=== PATIENT | female | born 1935 | race Caucasian/White ===

== ENCOUNTER → 2016-03-12 | Outpatient (CLI) | payer MEDICARE, BC ==
[~2016-03-12] MED LIST: BETIMOL 0.5% OPH5 ML OD; BETIMOL 0.5% OPH5 ML OU; HCTZ 25MG TAB25 MG PO; HCTZ12.5TAB PO; SYNTHROID0.05 MG/TA PO; SYNTHROID0.075 MG/T PO; XALATAN EYE DROPS OD; ZOFRAN 4MG T4 MG/TAB PO
== END ==
LOC: COL.VAS 12:45
DX: M79.89 Other specified soft tissue disorders (principal)

== ENCOUNTER → 2017-04-18 | Outpatient (CLI) | payer MEDICARE, BC ==
[2017-04-18 15:59] LABS: BASO % 0.2 % (0.0-2.0); EOS # 0.2 (0.0-0.7); EOS % 3.2 % (0-4.0); GRAN # 4.4 (1.4-6.5); GRAN % 66.5 % (42.2-75.2); HEMATOCRIT 40.3 % (37.0-47.0); HEMOGLOBIN 13.6 g/dl (12.5-16.0); LYMPH # 1.4 (1.2-3.4); LYMPH % 21.2 % (20.0-51.0); MEAN CELL VOLUME 97 fl (80.0-100.0); MEAN CORPUSCULAR HEMOGLOBIN 33 pg (27.0-31.0); MEAN CORPUSCULAR HGB CONC 34 g/dl (33.0-37.0); MEAN PLATELET VOLUME 9.1 fl (7.4-10.4); MONO # 0.6 (0.1-0.6); MONO % 8.7 % (1.7-9.3); PLATELET COUNT 165 K/mm3 (130-400); RED BLOOD COUNT 4.17 M/mm3 (4.10-5.30); REDCELL DISTRIBUTION WIDTH-CV 13.2 % (11.5-14.5)
[2017-04-18 16:21] LABS: ALANINE AMINOTRANSFERASE 39 U/L (9-52); ALBUMIN 4.6 gm/dL (3.5-5.0); ALKALINE PHOSPHATASE 111 U/L (50-136); ANION GAP 9 mmol/L (7-16); AST,SGOT 31 U/L (15-37); BILIRUBIN,TOTAL 0.9 mg/dL (0.0-1.0); BLOOD UREA NITROGEN 16 mg/dL (7-17); CALCIUM 9.6 mg/dL (8.4-10.2); CARBON DIOXIDE 29 mmol/L (22-30); CHLORIDE 94 mmol/L (98-107); GLUCOSE 97 mg/dL (74-106); POTASSIUM 4.1 mmol/L (3.4-5.0); SODIUM 132 mmol/L (137-145); TOTAL PROTEIN 7.8 gm/dL (6.4-8.2)
[2017-04-18 16:38] LABS: TROPONIN-I < 0.012 ng/mL (0.000-0.034)
== END ==
LOC: COL.RAD 15:11
PROVIDERS: Internal Medicine
DX: R07.9 Chest pain, unspecified (principal); Q67.6 Pectus excavatum

== ENCOUNTER 2017-10-01 09:00 | Outpatient (RCR) | payer MEDICARE, BC | END 2017-10-02 10:18 | disposition home or self-care (01) | LOC: WSOT 09:00 | DX: G56.02 Carpal tunnel syndrome, left upper limb (principal) | CPT/HCPCS: G8987-GO; G8988-GO; G8989-GO ==

== ENCOUNTER 2018-02-10 13:52 | Emergency (ER) | payer MEDICARE, BC ==
[~2018-02-10] VITALS: Ht 167.6 cm; Wt 71.8 kg
[2018-02-10 13:56] VITALS: TEMP 98.2
[2018-02-10 14:23] LABS: BASO % 0.2 % (0.0-2.0); EOS # 0.2 (0.0-0.7); EOS % 3.7 % (0-4.0); GRAN # 3.3 (1.4-6.5); GRAN % 66.5 % (42.2-75.2); HEMATOCRIT 38.5 % (37.0-47.0); HEMOGLOBIN 13.2 g/dl (12.5-16.0); LYMPH # 0.9 (1.2-3.4); LYMPH % 19.2 % (20.0-51.0); MEAN CELL VOLUME 98 fl (80.0-100.0); MEAN CORPUSCULAR HEMOGLOBIN 34 pg (27.0-31.0); MEAN CORPUSCULAR HGB CONC 34 g/dl (33.0-37.0); MEAN PLATELET VOLUME 9.5 fl (7.4-10.4); MONO # 0.5 (0.1-0.6); MONO % 10.2 % (1.7-9.3); PLATELET COUNT 140 K/mm3 (130-400); RED BLOOD COUNT 3.94 M/mm3 (4.10-5.30); REDCELL DISTRIBUTION WIDTH-CV 13.2 % (11.5-14.5)
[2018-02-10 14:40] LABS: ALANINE AMINOTRANSFERASE 39 U/L (9-52); ALBUMIN 4.1 gm/dL (3.5-5.0); ALKALINE PHOSPHATASE 62 U/L (50-136); ANION GAP 7 mmol/L (7-16); AST,SGOT 29 U/L (15-37); BILIRUBIN,TOTAL 0.7 mg/dL (0.0-1.0); BLOOD UREA NITROGEN 12 mg/dL (7-17); CALCIUM 8.9 mg/dL (8.4-10.2); CARBON DIOXIDE 28 mmol/L (22-30); CHLORIDE 101 mmol/L (98-107); CREATINE KINASE 40 U/L (30-135); CREATININE, serum 0.63 mg/dL (0.52-1.25); GLUCOSE 149 mg/dL (74-106); LIPASE 249 U/L (23-300); MAGNESIUM 1.9 mg/dL (1.6-2.3); POTASSIUM 4.2 mmol/L (3.4-5.0); SODIUM 135 mmol/L (137-145); TOTAL PROTEIN 6.8 gm/dL (6.4-8.2)
[2018-02-10 14:41] LABS: C-REACTIVE PROTEIN < 0.5 mg/dL (0.0-0.9)
[2018-02-10 14:45] LABS: ERYTHROCYTE SEDIMENTATION RATE 1 mm/hr (0-30)
[2018-02-10 14:49] LABS: TROPONIN-I < 0.012 ng/mL (0.000-0.034)
[2018-02-10 15:09] LABS: COLLECTION METHOD CLEAN CATCH
[2018-02-10 15:17] LABS: PH 7 (5-8); SQUAMOUS EPITHELIAL None Seen /hpf; URINE APPEARANCE Clear; URINE BACTERIA None Seen /hpf; URINE BILIRUBIN Negative (NEGATIVE); URINE BLOOD Negative (NEGATIVE); URINE COLOR Colorless; URINE GLUCOSE Negative (NEGATIVE); URINE KETONE Negative (NEGATIVE); URINE LEUKOCYTE ESTERASE Negative (NEGATIVE); URINE NITRATE Negative (NEGATIVE); URINE PROTEIN(semi-quant) Negative (NEGATIVE); URINE RBC None Seen /hpf; URINE UROBILINOGEN Negative (NEGATIVE)
[2018-02-10 16:15] VITALS: BP 141/75; PULSE 70
== END 2018-02-10 16:37 | disposition home or self-care (01) ==
LOC: COL.ER 13:52
PROVIDERS: Emergency Medicine
DX: R53.1 Weakness (principal); I10 Essential (primary) hypertension; Z90.89 Acquired absence of other organs
CPT/HCPCS: J7030

== ENCOUNTER 2018-07-16 09:30 | Outpatient (RCR) | payer MEDICARE, BC | END 2018-07-23 10:19 | disposition home or self-care (01) | LOC: WSPT 09:30 | DX: R26.89 Other abnormalities of gait and mobility (principal) ==

== ENCOUNTER 2019-06-24 10:36 | Outpatient (CLI) | payer MEDICARE, BC ==
[~2019-06-24] VITALS: Ht 167.7 cm; Wt 66.9 kg
[~2019-06-24 10:36] MED LIST changes: -CLEOCIN HCL300 MG PO; -LOPRESSOR 225 MG/TAB PO; -NITRO-DUR0.1 MG/PAT TD; -VTAMINC250TA PO
[2019-06-24 11:02] VITALS: BP 166/72; PULSE 78; TEMP 98.2
[2019-06-24] MEDS ORDERED: FERRO-TIME325 MG PO (11:34)
[2019-06-24] MEDS ORDERED: FOLIC ACID 11 MG/TA1 PO (11:35)
[2019-06-24] MEDS ORDERED: PROTONIX 40MG T40 MG PO (11:36)
[2019-06-24] MEDS ORDERED: PREDNISONE20 MG PO (11:38)
[2019-06-24] MEDS ORDERED: NITRO-DUR0.1 MG/PAT TD (11:41)
[2019-06-24] MEDS ORDERED: VTAMINC250TA PO (11:42)
[2019-06-24 13:51] VITALS: BP 144/76; PULSE 89; TEMP 98.4
[2019-06-24] MEDS ORDERED: LOPRESSOR 225 MG/TAB PO (14:03)
[2019-06-24] MEDS ORDERED: CLEOCIN HCL300 MG PO (14:09)
--- NOTE | 2019-06-24 14:38 | NUR ---
Pt escorted to exit via wheelchair, daughter providing transportation. I reveiewed dc/fu/rx instructions with pt. She denied any questions or concerns at time of departure. Loop site was clean and dry at time of departure.
== END 2019-06-24 14:39 | disposition home or self-care (01) ==
LOC: COL.CAR 10:36
DX: I48.0 Paroxysmal atrial fibrillation (principal); I10 Essential (primary) hypertension; I34.0 Nonrheumatic mitral (valve) insufficiency; E03.9 Hypothyroidism, unspecified; G90.9 Disorder of the autonomic nervous system, unspecified; I27.20 Pulmonary hypertension, unspecified; D59.1 Other autoimmune hemolytic anemias; Z79.82 Long term (current) use of aspirin; Z96.641 Presence of right artificial hip joint; Z88.6 Allergy status to analgesic agent; Z88.1 Allergy status to other antibiotic agents; Z79.52 Long term (current) use of systemic steroids; Z82.3 Family history of stroke
CPT/HCPCS: 27124; C1764

== ENCOUNTER → 2019-06-24 | Outpatient (CLI) | payer MEDICARE, BC ==
[~2019-06-24] MED LIST changes: +ASPIRIN 81M81 MG/TA2 PO; +CLEOCIN HCL300 MG PO; +COZAAR100 MG PO; +FERRO-TIME325 MG PO; +FOLIC ACID 11 MG/TA1 PO; +LOPRESSOR 225 MG/TAB PO; +NITRO-DUR0.1 MG/PAT TD; +PREDNISONE20 MG PO; +PROBIOTIC DIGE1 EACH PO; +PROTONIX 40MG T40 MG PO; +VTAMINC250TA PO
[2019-06-24 13:48] LABS: HEMOGLOBIN 10.1 g/dl (12.5-16.0); MEAN CELL VOLUME 114 fl (80.0-100.0); MEAN CORPUSCULAR HEMOGLOBIN 40 pg (27.0-31.0); MEAN CORPUSCULAR HGB CONC 35 g/dl (33.0-37.0); MEAN PLATELET VOLUME 8.3 fl (7.4-10.4); PLATELET COUNT 199 K/mm3 (130-400); RED BLOOD COUNT 2.53 M/mm3 (4.10-5.30); REDCELL DISTRIBUTION WIDTH-CV 16.3 % (11.5-14.5); RETIC # 0.18 M/mm3 (0.02-0.16); RETIC % 7.2 % (0.5-3.52)
[2019-06-24 13:53] LABS: HEMATOCRIT 28.8 % (37.0-47.0)
[2019-06-24 14:04] LABS: ALBUMIN 4.3 gm/dL (3.5-5.0); BILIRUBIN,TOTAL 2.9 mg/dL (0.0-1.0); CALCIUM 9.1 mg/dL (8.4-10.2); CREATININE, serum 0.54 (0.52-1.25); POTASSIUM 3.8 mmol/L (3.4-5.0); TOTAL PROTEIN 6.9 gm/dL (6.4-8.2)
[2019-06-24 14:15] LABS: IRON,SERUM 46 ug/dL (35-150)
[2019-06-24 14:24] LABS: TOTAL IRON BINDING CAPACITY 271 ug/dL (265-497)
[2019-06-24 18:23] LABS: BAND 2 % (0-10); LYMPHOCYTE 14 % (20.0-51.0); NEUTROPHILS 84 % (42.0-75.2)
[2019-06-24 18:25] LABS: ANISOCYTOSIS 1+
== END ==
LOC: COL.LAB 10:43
PROVIDERS: Internal Medicine Medical Oncology
DX: I48.0 Paroxysmal atrial fibrillation (principal)

== ENCOUNTER → 2019-08-10 | Outpatient (CLI) | payer MEDICARE, BC ==
[~2019-08-10] MED LIST changes: +CLEOCIN HCL300 MG PO; +LOPRESSOR 225 MG/TAB PO; +NITRO-DUR0.1 MG/PAT TD; +VTAMINC250TA PO
[2019-08-10 14:41] LABS: HEMOGLOBIN 10.4 g/dl (12.5-16.0); MEAN CELL VOLUME 111 fl (80.0-100.0); MEAN CORPUSCULAR HEMOGLOBIN 38 pg (27.0-31.0); MEAN CORPUSCULAR HGB CONC 35 g/dl (33.0-37.0); MEAN PLATELET VOLUME 8.5 fl (7.4-10.4); PLATELET COUNT 206 K/mm3 (130-400); RED BLOOD COUNT 2.71 M/mm3 (4.10-5.30); REDCELL DISTRIBUTION WIDTH-CV 18.1 % (11.5-14.5)
== END ==
LOC: COL.LAB 12:14
PROVIDERS: Internal Medicine Hematology & Oncology
DX: D59.8 Other acquired hemolytic anemias (principal)

== ENCOUNTER → 2019-08-17 | Outpatient (CLI) | payer MEDICARE, BC ==
[2019-08-17 13:32] LABS: HEMOGLOBIN 10.6 g/dl (12.5-16.0); MEAN CELL VOLUME 110 fl (80.0-100.0); MEAN CORPUSCULAR HEMOGLOBIN 38 pg (27.0-31.0); MEAN CORPUSCULAR HGB CONC 35 g/dl (33.0-37.0); MEAN PLATELET VOLUME 8.1 fl (7.4-10.4); PLATELET COUNT 198 K/mm3 (130-400); RED BLOOD COUNT 2.76 M/mm3 (4.10-5.30)
[2019-08-17 14:09] LABS: HEMATOCRIT 30.4 % (37.0-47.0)
[2019-08-17 14:14] LABS: LYMPHOCYTE 2 % (20.0-51.0); METAMYELOCYTE 1 % (0-0); NEUTROPHILS 95 % (42.0-75.2)
[2019-08-17 14:16] LABS: PLATELET ESTIMATE NORMAL (NORMAL); TOXIC GRANULATION PRESENT
== END ==
LOC: COL.LAB 13:12
PROVIDERS: Internal Medicine Hematology & Oncology
DX: D59.8 Other acquired hemolytic anemias (principal)

== ENCOUNTER → 2019-08-20 | Outpatient (CLI) | payer MEDICARE, BC ==
[2019-08-20 13:51] LABS: MEAN CELL VOLUME 111 fl (80.0-100.0); MEAN CORPUSCULAR HGB CONC 35 g/dl (33.0-37.0); MEAN PLATELET VOLUME 8.4 fl (7.4-10.4); PLATELET COUNT 216 K/mm3 (130-400); RED BLOOD COUNT 2.56 M/mm3 (4.10-5.30); REDCELL DISTRIBUTION WIDTH-CV 17.8 % (11.5-14.5); RETIC # 0.19 M/mm3 (0.02-0.16); RETIC % 7.6 % (0.5-3.52)
[2019-08-20 13:53] LABS: HEMATOCRIT 28.4 % (37.0-47.0); HEMOGLOBIN 9.9 g/dl (12.5-16.0); MEAN CORPUSCULAR HEMOGLOBIN 39 pg (27.0-31.0)
[2019-08-20 14:05] LABS: BILIRUBIN,TOTAL 1.6 mg/dL (0.0-1.0); CALCIUM 9.2 mg/dL (8.4-10.2); CREATININE, serum 0.85 (0.52-1.25); POTASSIUM 4.6 mmol/L (3.4-5.0); TOTAL PROTEIN 6.8 gm/dL (6.4-8.2)
[2019-08-20 14:14] LABS: BAND 7 % (0-10); LYMPHOCYTE 2 % (20.0-51.0); NEUTROPHILS 88 % (42.0-75.2)
[2019-08-20 14:15] LABS: PLATELET ESTIMATE NORMAL (NORMAL)
== END ==
LOC: COL.LAB 13:21
PROVIDERS: Internal Medicine Hematology & Oncology
DX: D59.8 Other acquired hemolytic anemias (principal)

== ENCOUNTER → 2019-08-27 | Outpatient (CLI) | payer MEDICARE, BC ==
[2019-08-27 15:49] LABS: HEMOGLOBIN 10.2 g/dl (12.5-16.0); MEAN CELL VOLUME 114 fl (80.0-100.0); MEAN CORPUSCULAR HEMOGLOBIN 40 pg (27.0-31.0); MEAN CORPUSCULAR HGB CONC 35 g/dl (33.0-37.0); MEAN PLATELET VOLUME 8.3 fl (7.4-10.4); PLATELET COUNT 235 K/mm3 (130-400); RED BLOOD COUNT 2.57 M/mm3 (4.10-5.30); REDCELL DISTRIBUTION WIDTH-CV 18.4 % (11.5-14.5); RETIC # 0.22 M/mm3 (0.02-0.16); RETIC % 8.7 % (0.5-3.52)
[2019-08-27 16:02] LABS: BILIRUBIN,TOTAL 1.7 mg/dL (0.0-1.0); CALCIUM 9.3 mg/dL (8.4-10.2); CREATININE, serum 0.74 (0.52-1.25); POTASSIUM 4.4 mmol/L (3.4-5.0); TOTAL PROTEIN 6.8 gm/dL (6.4-8.2)
[2019-08-27 16:05] LABS: HEMATOCRIT 29.3 % (37.0-47.0)
[2019-08-27 17:34] LABS: ANISOCYTOSIS 2+; BAND 1 % (0-10); LYMPHOCYTE 2 % (20.0-51.0); METAMYELOCYTE 1 % (0-0); MICROCYTOSIS 2+; NEUTROPHILS 96 % (42.0-75.2)
[2019-08-27 17:36] LABS: POLYCHROMASIA 1+
== END ==
LOC: COL.LAB 15:18
PROVIDERS: Internal Medicine
DX: D59.8 Other acquired hemolytic anemias (principal); Z79.899 Other long term (current) drug therapy

== ENCOUNTER → 2019-08-31 | Outpatient (CLI) | payer MEDICARE, BC ==
[2019-08-31 17:03] LABS: BASO % 0.1 % (0.0-2.0); GRAN # 8.9 (1.4-6.5); GRAN % 89.9 % (42.2-75.2); LYMPH # 0.6 (1.2-3.4); LYMPH % 6.4 % (20.0-51.0); MEAN CELL VOLUME 114 fl (80.0-100.0); MEAN CORPUSCULAR HGB CONC 35 g/dl (33.0-37.0); MEAN PLATELET VOLUME 8.3 fl (7.4-10.4); MONO # 0.2 (0.1-0.6); MONO % 2.4 % (1.7-9.3); PLATELET COUNT 238 K/mm3 (130-400); RED BLOOD COUNT 2.45 M/mm3 (4.10-5.30); REDCELL DISTRIBUTION WIDTH-CV 18.6 % (11.5-14.5); RETIC # 0.24 M/mm3 (0.02-0.16); RETIC % 9.9 % (0.5-3.52)
[2019-08-31 17:04] LABS: HEMATOCRIT 27.8 % (37.0-47.0); HEMOGLOBIN 9.6 g/dl (12.5-16.0); MEAN CORPUSCULAR HEMOGLOBIN 39 pg (27.0-31.0)
[2019-08-31 17:12] LABS: ALBUMIN 4.1 gm/dL (3.5-5.0); BILIRUBIN,TOTAL 1.9 mg/dL (0.0-1.0); CALCIUM 9.2 mg/dL (8.4-10.2); CREATININE, serum 0.68 (0.52-1.25); POTASSIUM 4.2 mmol/L (3.4-5.0); TOTAL PROTEIN 6.9 gm/dL (6.4-8.2)
== END ==
LOC: COL.LAB 16:31
PROVIDERS: Internal Medicine Hematology & Oncology
DX: D59.8 Other acquired hemolytic anemias (principal)

== ENCOUNTER → 2019-09-03 | Outpatient (CLI) | payer MEDICARE, BC ==
[2019-09-03 13:22] LABS: BASO % 0.2 % (0.0-2.0); EOS # 0.1 (0.0-0.7); EOS % 0.7 % (0-4.0); GRAN % 88.1 % (42.2-75.2); LYMPH # 0.6 (1.2-3.4); LYMPH % 6.4 % (20.0-51.0); MEAN CELL VOLUME 115 fl (80.0-100.0); MEAN CORPUSCULAR HGB CONC 35 g/dl (33.0-37.0); MEAN PLATELET VOLUME 8.6 fl (7.4-10.4); MONO # 0.3 (0.1-0.6); MONO % 3.5 % (1.7-9.3); PLATELET COUNT 239 K/mm3 (130-400); RED BLOOD COUNT 2.33 M/mm3 (4.10-5.30); REDCELL DISTRIBUTION WIDTH-CV 19.2 % (11.5-14.5); RETIC # 0.26 M/mm3 (0.02-0.16); RETIC % 11.3 % (0.5-3.52)
[2019-09-03 13:31] LABS: BILIRUBIN,TOTAL 2.4 mg/dL (0.0-1.0); CALCIUM 9.2 mg/dL (8.4-10.2); CREATININE, serum 0.67 (0.52-1.25); POTASSIUM 4.3 mmol/L (3.4-5.0); TOTAL PROTEIN 6.8 gm/dL (6.4-8.2)
[2019-09-03 13:47] LABS: HEMATOCRIT 26.7 % (37.0-47.0); HEMOGLOBIN 9.3 g/dl (12.5-16.0); MEAN CORPUSCULAR HEMOGLOBIN 40 pg (27.0-31.0)
== END ==
LOC: COL.LAB 12:30
PROVIDERS: Internal Medicine Hematology & Oncology
DX: D59.8 Other acquired hemolytic anemias (principal)

== ENCOUNTER 2019-09-11 08:30 | Outpatient (RCR) | payer MEDICARE, BC ==
[2019-11-04] MEDS ORDERED: ZOFRAN ODT4 MG PO (08:58)
[2019-11-04] MEDS ORDERED: CYTOXAN 50 PO (08:59)
[2019-11-09] MEDS ORDERED: BETAPACE 80MG80 MG PO (11:12)
[2019-11-23] MEDS ORDERED: ZOVIRAX400 MG PO (18:59)
== END 2019-11-30 11:40 | disposition home or self-care (01) ==
LOC: WSC 08:30
DX: I10 Essential (primary) hypertension (principal); E03.9 Hypothyroidism, unspecified; I48.0 Paroxysmal atrial fibrillation; D59.8 Other acquired hemolytic anemias; I27.20 Pulmonary hypertension, unspecified

== ENCOUNTER → 2019-09-23 | Outpatient (CLI) | payer MEDICARE, BC ==
[2019-09-23 13:59] LABS: MEAN CELL VOLUME 125 fl (80.0-100.0); MEAN CORPUSCULAR HGB CONC 35 g/dl (33.0-37.0); MEAN PLATELET VOLUME 8.5 fl (7.4-10.4); PLATELET COUNT 232 K/mm3 (130-400); RED BLOOD COUNT 2.01 M/mm3 (4.10-5.30); RETIC # 0.19 M/mm3 (0.02-0.16); RETIC % 9.5 % (0.5-3.52)
[2019-09-23 14:09] LABS: BILIRUBIN,TOTAL 2.3 mg/dL (0.0-1.0); CALCIUM 8.9 mg/dL (8.4-10.2); CREATININE, serum 0.71 (0.52-1.25); POTASSIUM 4.6 mmol/L (3.4-5.0); TOTAL PROTEIN 6.7 gm/dL (6.4-8.2)
[2019-09-23 14:19] LABS: HEMATOCRIT 25.2 % (37.0-47.0); HEMOGLOBIN 8.9 g/dl (12.5-16.0); MEAN CORPUSCULAR HEMOGLOBIN 44 pg (27.0-31.0)
[2019-09-23 14:51] LABS: ANISOCYTOSIS 3+; BAND 1 % (0-10); LYMPHOCYTE 4 % (20.0-51.0); METAMYELOCYTE 1 % (0-0); NEUTROPHILS 93 % (42.0-75.2); PLATELET ESTIMATE NORMAL (NORMAL)
== END ==
LOC: COL.LAB 13:27
PROVIDERS: Internal Medicine Hematology & Oncology
DX: D59.8 Other acquired hemolytic anemias (principal)

== ENCOUNTER → 2019-09-30 | Outpatient (CLI) | payer MEDICARE, BC ==
[2019-09-30 14:18] LABS: MEAN CELL VOLUME 131 fl (80.0-100.0); MEAN CORPUSCULAR HGB CONC 35 g/dl (33.0-37.0); MEAN PLATELET VOLUME 8.5 fl (7.4-10.4); PLATELET COUNT 210 K/mm3 (130-400); RED BLOOD COUNT 2.05 M/mm3 (4.10-5.30); REDCELL DISTRIBUTION WIDTH-CV 17.6 % (11.5-14.5); RETIC # 0.13 M/mm3 (0.02-0.16); RETIC % 6.4 % (0.5-3.52)
[2019-09-30 14:24] LABS: HEMATOCRIT 26.9 % (37.0-47.0); HEMOGLOBIN 9.3 g/dl (12.5-16.0); MEAN CORPUSCULAR HEMOGLOBIN 45 pg (27.0-31.0)
[2019-09-30 14:28] LABS: ALBUMIN 3.8 gm/dL (3.5-5.0); BILIRUBIN,TOTAL 1.5 mg/dL (0.0-1.0); CALCIUM 8.5 mg/dL (8.4-10.2); CREATININE, serum 0.66 (0.52-1.25); POTASSIUM 4.2 mmol/L (3.4-5.0); TOTAL PROTEIN 6.3 gm/dL (6.4-8.2)
[2019-09-30 15:02] LABS: LYMPHOCYTE 5 % (20.0-51.0); METAMYELOCYTE 2 % (0-0); MYELOCYTE 1 % (0-0); NEUTROPHILS 92 % (42.0-75.2)
[2019-09-30 15:04] LABS: HELMET CELLS 1+; TEAR DROP CELLS 1+
[2019-09-30 15:05] LABS: OVALOCYTES 1+
[2019-09-30 15:06] LABS: ANISOCYTOSIS 1+; PLATELET ESTIMATE NORMAL (NORMAL)
[2019-10-01 08:24] LABS: PATHOLOGY DIFF REVIEW OK
== END ==
LOC: COL.LAB 13:45
PROVIDERS: Internal Medicine Hematology & Oncology
DX: D59.8 Other acquired hemolytic anemias (principal); R74.8 Abnormal levels of other serum enzymes

== ENCOUNTER → 2019-10-07 | Outpatient (CLI) | payer MEDICARE, BC ==
[2019-10-07 14:50] LABS: MEAN CELL VOLUME 129 fl (80.0-100.0); MEAN CORPUSCULAR HEMOGLOBIN 44 pg (27.0-31.0); MEAN CORPUSCULAR HGB CONC 34 g/dl (33.0-37.0); MEAN PLATELET VOLUME 8.4 fl (7.4-10.4); PLATELET COUNT 214 K/mm3 (130-400); RED BLOOD COUNT 2.26 M/mm3 (4.10-5.30); REDCELL DISTRIBUTION WIDTH-CV 15.1 % (11.5-14.5); RETIC # 0.09 M/mm3 (0.02-0.16); RETIC % 3.9 % (0.5-3.52)
[2019-10-07 14:53] LABS: HEMATOCRIT 29.1 % (37.0-47.0)
[2019-10-07 14:59] LABS: ALBUMIN 3.9 gm/dL (3.5-5.0); BILIRUBIN,TOTAL 1.2 mg/dL (0.0-1.0); CALCIUM 8.9 mg/dL (8.4-10.2); CREATININE, serum 0.68 (0.52-1.25); POTASSIUM 4.6 mmol/L (3.4-5.0); TOTAL PROTEIN 6.5 gm/dL (6.4-8.2)
[2019-10-07 15:15] LABS: BAND 7 % (0-10); LYMPHOCYTE 5 % (20.0-51.0); NEUTROPHILS 84 % (42.0-75.2)
[2019-10-07 15:16] LABS: ANISOCYTOSIS 1+; OVALOCYTES 1+; PLATELET ESTIMATE NORMAL (NORMAL)
== END ==
LOC: COL.LAB 14:12
PROVIDERS: Internal Medicine Hematology & Oncology
DX: D59.8 Other acquired hemolytic anemias (principal); R74.8 Abnormal levels of other serum enzymes

== ENCOUNTER → 2019-10-14 | Outpatient (CLI) | payer MEDICARE, BC ==
[2019-10-14 13:38] LABS: MEAN CELL VOLUME 127 fl (80.0-100.0); MEAN CORPUSCULAR HGB CONC 34 g/dl (33.0-37.0); MEAN PLATELET VOLUME 8.7 fl (7.4-10.4); PLATELET COUNT 177 K/mm3 (130-400); RED BLOOD COUNT 2.26 M/mm3 (4.10-5.30); REDCELL DISTRIBUTION WIDTH-CV 14.1 % (11.5-14.5); RETIC # 0.08 M/mm3 (0.02-0.16); RETIC % 3.5 % (0.5-3.52)
[2019-10-14 13:43] LABS: HEMATOCRIT 28.6 % (37.0-47.0); HEMOGLOBIN 9.8 g/dl (12.5-16.0); MEAN CORPUSCULAR HEMOGLOBIN 43 pg (27.0-31.0)
[2019-10-14 13:49] LABS: ALBUMIN 4.1 gm/dL (3.5-5.0); BILIRUBIN,TOTAL 1.4 mg/dL (0.0-1.0); CREATININE, serum 0.78 (0.52-1.25); POTASSIUM 4.3 mmol/L (3.4-5.0); TOTAL PROTEIN 6.6 gm/dL (6.4-8.2)
[2019-10-14 14:04] LABS: BAND 5 % (0-10)
[2019-10-14 14:05] LABS: EOSINOPHIL 1 % (0-4); LYMPHOCYTE 3 % (20.0-51.0); NEUTROPHILS 85 % (42.0-75.2); PLATELET ESTIMATE NORMAL (NORMAL)
== END ==
LOC: COL.LAB 13:10
PROVIDERS: Internal Medicine Hematology & Oncology
DX: R74.8 Abnormal levels of other serum enzymes (principal); D59.8 Other acquired hemolytic anemias

== ENCOUNTER → 2019-10-21 | Outpatient (CLI) | payer MEDICARE, BC ==
[2019-10-21 14:35] LABS: MEAN CELL VOLUME 126 fl (80.0-100.0); MEAN CORPUSCULAR HGB CONC 34 g/dl (33.0-37.0); MEAN PLATELET VOLUME 8.7 fl (7.4-10.4); PLATELET COUNT 184 K/mm3 (130-400); RED BLOOD COUNT 2.24 M/mm3 (4.10-5.30); REDCELL DISTRIBUTION WIDTH-CV 13.5 % (11.5-14.5); RETIC # 0.09 M/mm3 (0.02-0.16); RETIC % 3.9 % (0.5-3.52)
[2019-10-21 14:39] LABS: HEMATOCRIT 28.3 % (37.0-47.0); HEMOGLOBIN 9.7 g/dl (12.5-16.0); MEAN CORPUSCULAR HEMOGLOBIN 43 pg (27.0-31.0)
[2019-10-21 14:47] LABS: ALBUMIN 3.9 gm/dL (3.5-5.0); BILIRUBIN,TOTAL 1.3 mg/dL (0.0-1.0); CALCIUM 8.9 mg/dL (8.4-10.2); CREATININE, serum 0.7 (0.52-1.25); POTASSIUM 4.4 mmol/L (3.4-5.0); TOTAL PROTEIN 6.5 gm/dL (6.4-8.2)
[2019-10-21 14:58] LABS: BAND 5 % (0-10); LYMPHOCYTE 3 % (20.0-51.0); NEUTROPHILS 91 % (42.0-75.2); PLATELET ESTIMATE NORMAL (NORMAL)
== END ==
LOC: COL.LAB 13:37
PROVIDERS: Internal Medicine Hematology & Oncology
DX: D59.8 Other acquired hemolytic anemias (principal); R74.8 Abnormal levels of other serum enzymes

== ENCOUNTER → 2019-10-28 | Outpatient (CLI) | payer MEDICARE, BC | LOC: COL.LAB 14:29 | DX: E03.9 Hypothyroidism, unspecified (principal) ==

== ENCOUNTER → 2019-10-28 | Outpatient (CLI) | payer MEDICARE, BC ==
[2019-10-28 15:09] LABS: HEMOGLOBIN 9.8 g/dl (12.5-16.0); MEAN CELL VOLUME 123 fl (80.0-100.0); MEAN CORPUSCULAR HEMOGLOBIN 42 pg (27.0-31.0); MEAN CORPUSCULAR HGB CONC 34 g/dl (33.0-37.0); MEAN PLATELET VOLUME 8.4 fl (7.4-10.4); PLATELET COUNT 173 K/mm3 (130-400); RED BLOOD COUNT 2.34 M/mm3 (4.10-5.30); REDCELL DISTRIBUTION WIDTH-CV 13.4 % (11.5-14.5); RETIC % 4.1 % (0.5-3.52)
[2019-10-28 15:10] LABS: HEMATOCRIT 28.7 % (37.0-47.0)
[2019-10-28 15:19] LABS: ALBUMIN 3.8 gm/dL (3.5-5.0); CALCIUM 8.7 mg/dL (8.4-10.2); CREATININE, serum 0.61 (0.52-1.25); POTASSIUM 4.7 mmol/L (3.4-5.0); TOTAL PROTEIN 6.3 gm/dL (6.4-8.2)
[2019-10-28 15:27] LABS: BAND 4 % (0-10); EOSINOPHIL 1 % (0-4); LYMPHOCYTE 3 % (20.0-51.0); NEUTROPHILS 87 % (42.0-75.2); PLATELET ESTIMATE NORMAL (NORMAL)
[2019-10-28 15:28] LABS: ANISOCYTOSIS 1+
== END ==
LOC: COL.LAB 14:24
PROVIDERS: Internal Medicine Hematology & Oncology
DX: D59.8 Other acquired hemolytic anemias (principal)

== ENCOUNTER 2019-11-04 08:01 | Inpatient (IN) | payer MEDICARE, BC ==
[~2019-11-04] VITALS: Ht 167.6 cm; Wt 62.1 kg
[2019-11-04] VITALS (576 sets, daily range): BP systolic 97–116; BP diastolic 50–67; PULSE 80–105; TEMP 98.1–99.4; O2SAT 86–98
[2019-11-04 08:22] LABS: HEMOGLOBIN 10.3 g/dl (12.5-16.0); MEAN CELL VOLUME 120 fl (80.0-100.0); MEAN CORPUSCULAR HEMOGLOBIN 41 pg (27.0-31.0); MEAN CORPUSCULAR HGB CONC 35 g/dl (33.0-37.0); MEAN PLATELET VOLUME 8.7 fl (7.4-10.4); PLATELET COUNT 154 K/mm3 (130-400); RED BLOOD COUNT 2.49 M/mm3 (4.10-5.30); REDCELL DISTRIBUTION WIDTH-CV 13.6 % (11.5-14.5)
[2019-11-04 08:26] LABS: HEMATOCRIT 29.8 % (37.0-47.0)
[2019-11-04 08:31] LABS: INR 1.1 (0.8-3.0); PROTHROMBIN TIME 12.7 SECONDS (9.7-12.8)
[2019-11-04 08:33] LABS: ALBUMIN 3.5 gm/dL (3.5-5.0); BILIRUBIN,TOTAL 1.3 mg/dL (0.0-1.0); CALCIUM 8.2 mg/dL (8.4-10.2); CREATININE, serum 0.67 (0.52-1.25); POTASSIUM 3.7 mmol/L (3.4-5.0); TOTAL PROTEIN 5.8 gm/dL (6.4-8.2)
[2019-11-04 08:55] LABS: TROPONIN-I 0.059 ng/mL (0.000-0.035)
[2019-11-04 08:58] LABS: BAND 19 % (0-10); EOSINOPHIL 7 % (0-4); LYMPHOCYTE 8 % (20.0-51.0); METAMYELOCYTE 2 % (0-0); NEUTROPHILS 59 % (42.0-75.2); PLATELET ESTIMATE NORMAL (NORMAL)
[2019-11-04] MEDS ORDERED: ZOFRAN ODT4 MG PO (08:58)
[2019-11-04] MEDS ORDERED: CYTOXAN 50 PO (08:59)
--- NOTE | 2019-11-04 09:50 | NUR ---
PT arrives to ICU via stretcher. PT is able to move self over to ICU bed. PT denies any pain, but does have shortness of breath. PT is at 95% RA. Carizem is currenlty running at 10ml/hr. PT HR fluctuates between 95 and 120. A-fib noted. Pulses are strong. PT appears to be alert and oriented answers questions appropriately. Daughter is bedside. PT is restingin bed. Hospitalist is notified of patient's arrival to IMCU.
[2019-11-04 10:39] LABS: COLLECTION METHOD CLEAN CATCH
--- NOTE | 2019-11-04 11:06 | NUR ---
SOILA Baumann notified of Dr. Galindo consultaion for this patient.
[2019-11-04 11:08] LABS: PH 8 (5-8); URINE APPEARANCE Clear; URINE BILIRUBIN Negative (NEGATIVE); URINE BLOOD Negative (NEGATIVE); URINE COLOR Yellow; URINE GLUCOSE Negative (NEGATIVE); URINE KETONE Negative (NEGATIVE); URINE LEUKOCYTE ESTERASE Trace (NEGATIVE); URINE NITRATE Negative (NEGATIVE); URINE PROTEIN(semi-quant) Negative (NEGATIVE); URINE UROBILINOGEN Negative (NEGATIVE)
[2019-11-04 11:22] LABS: SQUAMOUS EPITHELIAL 0-2 /hpf; URINE RBC 0-2 /hpf
[2019-11-04 11:23] LABS: MUCOUS Present /lpf; URINE BACTERIA Rare /hpf
--- NOTE | 2019-11-04 12:40 | NUR ---
Information from ANITHA, based on pateitns WBC, given to Poonam mid-level practitione.
--- NOTE | 2019-11-04 13:19 | NUR ---
Wind Energy Mechanic met with patient to discuss discharge planning. Patient's daughter, Brandi (ph#[phone]) is at bedside, but stepped out to go to the cafeteria. Patient lives alone in [place] and sees Dr. Hudson for primary care. Patient has medications delivered to her by [facility] and has no issues paying for her medications at this time. Patient has a cane that she uses on an as needed basis and also has a CPAP from [employer]. Patient states she hasn't been wearing it this week as the mask is uncomfortable. Patient reports she just had an updated sleep study in August. Patient reports that she is independent with ADLS and has been able to fix her own meals. Patient's daughter Brandi lives near [place] but works in [place] and can provide supports as needed. Patient states her daughter, Brandi and son, Alon are her DPOA-HC. Patient plans to return home upon discharge at this time. NITO did not locate copy of DPOA-HC in EMR. NITO contacted Naty at Dr. Hudson's office who will fax over a copy. NITO will continue to follow.
--- NOTE | 2019-11-04 13:49 | NUR ---
Auto Radiator Mechanic placed copy of DPOA-HC documents on chart. SW will continue to follow.
--- NOTE | 2019-11-04 18:46 | NUR ---
PTs rythym noted to be regular with p waves present. Called hospitalist and RT for EKG to confirm that PT was in sinus rythym.
[2019-11-05] VITALS (839 sets, daily range): BP systolic 95–121; BP diastolic 53–83; PULSE 64–85; TEMP 97.9–100.7; O2SAT 89–100
[2019-11-05 06:27] LABS: MEAN CELL VOLUME 121 fl (80.0-100.0); MEAN CORPUSCULAR HGB CONC 34 g/dl (33.0-37.0); PLATELET COUNT 134 K/mm3 (130-400); REDCELL DISTRIBUTION WIDTH-CV 13.5 % (11.5-14.5)
[2019-11-05 06:34] LABS: CALCIUM 7.8 mg/dL (8.4-10.2); CREATININE, serum 0.61 (0.52-1.25); POTASSIUM 4.1 mmol/L (3.4-5.0)
[2019-11-05 06:39] LABS: HEMATOCRIT 25.4 % (37.0-47.0); HEMOGLOBIN 8.6 g/dl (12.5-16.0); MEAN CORPUSCULAR HEMOGLOBIN 41 pg (27.0-31.0)
[2019-11-05 08:00] LABS: BAND 26 % (0-10); EOSINOPHIL 8 % (0-4); LYMPHOCYTE 3 % (20.0-51.0); NEUTROPHILS 57 % (42.0-75.2); PLATELET ESTIMATE DECREASED (NORMAL)
--- NOTE | 2019-11-05 09:53 | NUR ---
Pt is taking po cytoxan daily. This drug will be present in her urine for 5 days post each administration. Please wear double gloves when having contact with urine and double flush toilet with each void disposal. A gown should be worn if you are anticipating splatter.
--- NOTE | 2019-11-05 16:27 | NUR ---
Agricultural And Forestry Supervisor met with patient and patient's daughter, Brandi to review discharge plan. SW reviewed PT/OT recommendation for post acute rehab vs home wiht home health. Patient does not want to go to a care home due to concerns with COVID. Patient would like to be screened for [facility] and states that if [facility] cannot accept, her second preference would be to return home with home health services. SW provided Medicare.gov list of agencies for patient and Brandi to review. Brandi is in agreement with patient's preferences. NITO contacted [facility] Batres Director to give referral. Patient will be transferred to the medical floor this day. SW will continue to follow.
--- NOTE | 2019-11-05 17:22 | NUR ---
patient being transferred to Medical room 356, I have given report to receiving nurse SOILA Roe , augustine daughter is present, she is placed on tele and transported by wheelchair
--- NOTE | 2019-11-05 20:00 | NUR ---
ONCE PATIENT WAS RECEIVED FROM SOILA FALCON IN [facility], PT ARRIVED TO THE MEDICAL FLOOR. SHE HAD AN UNEVENTFUL REMAINDER OF THE DAY. VSS THROUGH REMAINDER OF SHIFT. NO FURTHER CONCERNS REPORTED TO NIGHT RN.
--- NOTE | 2019-11-05 23:14 | NUR ---
Pt resting in bed, assisted to the bathroom. pt gait steady, pushes up once to rise. pt denies pain, shortness of breath or chest pain. heart sounds are irregular with S1 and S2 present. lung sounds are clear in all lobes. educated pt on sotalol administration and durration. no other needs at this time.
[2019-11-06 02:47] VITALS: BP 130/67; PULSE 77; TEMP 99.1
--- NOTE | 2019-11-06 06:06 | NUR ---
pt sleeping in bed most of the night, did not call for many needs. bed was zeroed and weight documented. will continue to monitor.
--- NOTE | 2019-11-06 07:00 | NUR ---
PT IN BED AT THIS TIME. PT HAS NO C/O PAIN OR DISCOMFORT. ASSESSMENT COMPLETE. PT IS ON DAY 2 OF SOTALOL INITIATION. PT DOES TAKE DAILY CHEMOTHERAPY DRUG. PT IS STANDBY ASSIST, AND USES THE BATHROOM INDEPENDENTLY. CONTINUE TO FLUSH VOID X2 AND USE DOUBLE GLOVES NECCESSARY TO AVOID CONTACT. NO FURTHER CONCERNS AT THIS TIME. WILL CONTINUE TO MONITOR. CALL LIGHT AT BEDSIDE.
[2019-11-06 07:26] LABS: MEAN CELL VOLUME 118 fl (80.0-100.0); MEAN CORPUSCULAR HGB CONC 35 g/dl (33.0-37.0); MEAN PLATELET VOLUME 9.2 fl (7.4-10.4); PLATELET COUNT 140 K/mm3 (130-400); RED BLOOD COUNT 2.24 M/mm3 (4.10-5.30); REDCELL DISTRIBUTION WIDTH-CV 13.5 % (11.5-14.5)
[2019-11-06 07:40] LABS: HEMATOCRIT 26.4 % (37.0-47.0); HEMOGLOBIN 9.2 g/dl (12.5-16.0); MEAN CORPUSCULAR HEMOGLOBIN 41 pg (27.0-31.0)
[2019-11-06 07:47] LABS: CALCIUM 7.9 mg/dL (8.4-10.2); CREATININE, serum 0.66 (0.52-1.25); MAGNESIUM 2.1 mg/dL (1.6-2.3); POTASSIUM 3.8 mmol/L (3.4-5.0)
[2019-11-06 07:55] LABS: BAND 24 % (0-10); EOSINOPHIL 5 % (0-4); LYMPHOCYTE 3 % (20.0-51.0); NEUTROPHILS 63 % (42.0-75.2)
[2019-11-06 07:56] LABS: PLATELET ESTIMATE NORMAL (NORMAL)
--- NOTE | 2019-11-06 08:10 | NUR ---
PT IS AWAKE AND LAYING IN BED AT THIS TIME. TODAY THERE IS A STUDENT NURSE, CLARITA WHO WILL BE ASSISTING THIS RN IN TAKING CARE OF PT. CLARITA HAS IDENTIFIED HERSELF TO THE PATIENT, AND WILL ASSUME CARE UNDER THE SUPERVISION OF HER INSTRUCTOR. THIS RN WILL MONITOR CARE OF PATIENT. THIS RN DID ASSESS THE PATIENT, VSS, PT DOES HAS REDDENED SACRAL/COCCYX AREA. REPOSITIONING NECESSARY TO PREVENT PRESSURE INJURY. PT ACKNOWLEDGE THE REPOSITIONING AND IS CURRENTLY ON HER RIGHT SIDE. SHE STATES SHE WILL MOVE TO THE CHAIR TO EAT HER FOOD, THAT THE CHAIR WAS GOOD FOR THAT SORE SPOT YESTERDAY. NO FURTHER CONCERNS AT THIS TIME. WILL CHECK IN WITH STUDENT NURSE, CLARITA THROUGHOUT HER SHIFT.
[2019-11-06 09:23] VITALS: BP 117/60; PULSE 88; TEMP 98.2
--- NOTE | 2019-11-06 10:19 | NUR ---
Lunch Counter Manager attended clinical rounds with the team. After rounds, NITO contacted [facility] Director regarding referral. She will discuss the referral with her team then inform SW of decision. Will continue to monitor.
--- NOTE | 2019-11-06 13:32 | NUR ---
Primary nurse was assisted with [phone] patient care by [facility] ADN student Cedric Ventura and [facility] instructor Jaki Britt RN-BC.
[2019-11-06 13:34] VITALS: BP 99/54; PULSE 77; TEMP 98.6
--- NOTE | 2019-11-06 14:27 | NUR ---
Gisel, [facility] Director reports they cannot take the patient for post acute rehab. NITO met with the patient and her daughter, Brandi to follow up and provide an update. NITO informed them that [facility] cannot accept. They are going with the second choice of home with home health. They only want nursing serivces. The patient states she will work on exercises on her own at home. They are still looking over the agencies and discussing them with family. They will inform the weekend SW. This SW will leave a note. NITO collaborated the above information with DAVID.
[2019-11-06 16:58] VITALS: BP 112/50; PULSE 49; TEMP 98.6
[2019-11-06 19:21] VITALS: BP 106/53; PULSE 74; TEMP 97.5
--- NOTE | 2019-11-06 23:43 | NUR ---
Pt resting in chair, assisted to the bathroom and then back to chair. pt denies pain, shortness of breath or cough. heart sounds regular and lung sounds are clear. gave Sotalol per MAY. no other needs at this time.
[2019-11-07 00:10] VITALS: BP 106/51; PULSE 63; TEMP 98.9
[2019-11-07 04:18] VITALS: BP 118/62; PULSE 67; TEMP 99
--- NOTE | 2019-11-07 05:20 | NUR ---
Pt resting in bed, asleep most of the night. assisted to the bathroom a few times during the night. no needs at this time.
[2019-11-07 07:22] VITALS: BP 112/50; PULSE 74; TEMP 98.9
[2019-11-07 08:23] LABS: MEAN CELL VOLUME 116 fl (80.0-100.0); MEAN CORPUSCULAR HGB CONC 35 g/dl (33.0-37.0); MEAN PLATELET VOLUME 9.2 fl (7.4-10.4); PLATELET COUNT 144 K/mm3 (130-400); REDCELL DISTRIBUTION WIDTH-CV 13.2 % (11.5-14.5)
[2019-11-07 08:26] LABS: HEMATOCRIT 26.7 % (37.0-47.0); HEMOGLOBIN 9.2 g/dl (12.5-16.0); MEAN CORPUSCULAR HEMOGLOBIN 40 pg (27.0-31.0)
[2019-11-07 08:39] LABS: CREATININE, serum 0.66 (0.52-1.25); MAGNESIUM 2.2 mg/dL (1.6-2.3); POTASSIUM 3.9 mmol/L (3.4-5.0)
--- NOTE | 2019-11-07 08:45 | NUR ---
Patient sitting up in the recliner eatting breakfast. A&Ox3. VSS. IV CDI wrapped in coban. Denies pain and discomfort. Chemo precautions in place. Fall risk precautions in place. No further needs expressed from the patient.
[2019-11-07 12:27] LABS: BAND 12 % (0-10); LYMPHOCYTE 8 % (20.0-51.0); NEUTROPHILS 72 % (42.0-75.2); PLATELET ESTIMATE NORMAL (NORMAL)
--- NOTE | 2019-11-07 13:47 | NUR ---
Gave Patient the MEDICARE.gov home health list for [place] home [address] [address].. SW met with patient and DTR in the room to follow-up. No decision made on home health care. Educated patient and DTR on Home commode and gave resource sheet. Nothing Follows.
[2019-11-07 14:12] VITALS: BP 98/55; PULSE 74; TEMP 98.6
--- NOTE | 2019-11-07 15:39 | NUR ---
SW met with patient about plan. Patient selected [facility] health for Nursing and home supports. SW will fax referral for services. Awaiting response from [facility] supports.
--- NOTE | 2019-11-07 18:04 | NUR ---
Patient sitting up in the recliner eating dinner. Patient had one loose stool and complaints of dizziness when standing. Nurse instructed patient to change psotions slowly and to call nursing staff for assistance with ambulation. Patient verbalized an understanding. Patient A&Ox3. VSS. HRR, telemtry on chest. Neutropenic precautions in place. Fall precautions in place. No further needs expressed from the patient. Call light within reach
[2019-11-07 19:57] VITALS: BP 119/52; PULSE 72; TEMP 98.1
--- NOTE | 2019-11-07 21:52 | NUR ---
Pt resting in chair, assisted to the bathroom. pt stated some dizziness when initially standing, after standing for a while dizziness went away and gait was steady. denies pain and shortness of breath. heart sounds are regular and lung sounds are clear. no other needs at this time.
[2019-11-07 23:23] VITALS: BP 99/50; PULSE 69; TEMP 99.4
[2019-11-08 04:35] VITALS: BP 116/57; PULSE 67; TEMP 99.1
--- NOTE | 2019-11-08 06:17 | NUR ---
pt sleeping in bed most of the night, assisted to the bathroom a few times. pt denies weakness and gait is steady. pt denies pain, gave meds per MAR. no other needs at this time.
[2019-11-08 07:26] LABS: MEAN CELL VOLUME 115 fl (80.0-100.0); MEAN CORPUSCULAR HGB CONC 34 g/dl (33.0-37.0); MEAN PLATELET VOLUME 9.4 fl (7.4-10.4); PLATELET COUNT 144 K/mm3 (130-400); RED BLOOD COUNT 2.34 M/mm3 (4.10-5.30); REDCELL DISTRIBUTION WIDTH-CV 13.2 % (11.5-14.5)
[2019-11-08 07:31] LABS: HEMOGLOBIN 9.3 g/dl (12.5-16.0); MEAN CORPUSCULAR HEMOGLOBIN 40 pg (27.0-31.0)
[2019-11-08 07:41] LABS: CREATININE, serum 0.59 (0.52-1.25); MAGNESIUM 2.2 mg/dL (1.6-2.3); POTASSIUM 3.8 mmol/L (3.4-5.0)
[2019-11-08 08:00] VITALS: BP 100/58; PULSE 74; TEMP 98.9
[2019-11-08 08:36] LABS: BAND 32 % (0-10); EOSINOPHIL 7 % (0-4); LYMPHOCYTE 19 % (20.0-51.0); METAMYELOCYTE 1 % (0-0); NEUTROPHILS 35 % (42.0-75.2)
[2019-11-08 08:38] LABS: PLATELET ESTIMATE NORMAL (NORMAL)
--- NOTE | 2019-11-08 08:45 | NUR ---
Patient laying in bed resting. Patient easily awakened with verbal command. A&Ox3. VSS. IV CDI. No further needs expressed from the patient. Call light within reach. Bed alarm on
--- NOTE | 2019-11-08 10:29 | NUR ---
Pt resting in recliner comfortably. Nurse aided pt to bathroom x1 assist with walker. Pt voided. IV site was CDI. Call light within reach.
[2019-11-08 11:46] VITALS: BP 99/56; PULSE 65; TEMP 98.4
[2019-11-08 15:16] VITALS: BP 97/55; PULSE 70; TEMP 98.5
--- NOTE | 2019-11-08 17:36 | NUR ---
Patient had an uneventful day. Spent the day either in the recliner and bed. Nurse instructed patient to change positions to help distribute the weight on her sacral area. Patient verbalized an understanding. A&Ox3. VSS. IV CDI. Denies pain and discomfort. No complaints of dizziness with abulation. No further needs expressed from the patient. Call light within reach
[2019-11-08 19:00] VITALS: BP 116/64; PULSE 80; TEMP 99.2
--- NOTE | 2019-11-08 20:30 | NUR ---
Initial shift assessment done- Has been up in the chair-now to bathroom and back to bed with assistance- Denies pain,Tele on-sinus,, states will go home with home health in the next day or two-- on Sotalol-tolerating well. SCD,s.Using call light appropriately
[2019-11-08 23:56] VITALS: BP 112/59; PULSE 70; TEMP 99.1
--- NOTE | 2019-11-09 00:30 | NUR ---
Woke up with a headache- states 08/11,teary,Will give Tylenol as ordered--helped pt get repositioned in bed-VSS
--- NOTE | 2019-11-09 03:00 | NUR ---
Patient states shes really sweating- back of head damp-gown damp-new gown,and pillocases--did get some Tylenol about 2 hours ago for a headache,temp98.5,,VSS
[2019-11-09 03:16] VITALS: BP 101/47; PULSE 65; TEMP 98.2
[2019-11-09 07:08] LABS: MEAN CELL VOLUME 116 fl (80.0-100.0); MEAN CORPUSCULAR HGB CONC 34 g/dl (33.0-37.0); MEAN PLATELET VOLUME 9.3 fl (7.4-10.4); PLATELET COUNT 157 K/mm3 (130-400); RED BLOOD COUNT 2.36 M/mm3 (4.10-5.30); REDCELL DISTRIBUTION WIDTH-CV 13.3 % (11.5-14.5)
[2019-11-09 07:14] LABS: HEMATOCRIT 27.4 % (37.0-47.0); HEMOGLOBIN 9.3 g/dl (12.5-16.0); MEAN CORPUSCULAR HEMOGLOBIN 39 pg (27.0-31.0)
[2019-11-09 07:31] LABS: CALCIUM 8.2 mg/dL (8.4-10.2); CREATININE, serum 0.7 (0.52-1.25); MAGNESIUM 2.3 mg/dL (1.6-2.3); POTASSIUM 3.9 mmol/L (3.4-5.0)
[2019-11-09 08:00] VITALS: BP 112/54; PULSE 65; TEMP 98
[2019-11-09 09:27] LABS: BAND 8 % (0-10); HYPOCHROMIA 1+; LYMPHOCYTE 14 % (20.0-51.0); NEUTROPHILS 70 % (42.0-75.2); OVALOCYTES 1+; PLATELET ESTIMATE NORMAL (NORMAL)
[2019-11-09] MEDS ORDERED: BETAPACE 80MG80 MG PO (11:12)
--- NOTE | 2019-11-09 11:51 | NUR ---
Assessment completed, alert/oriented, vital signs stable, reports mild headache but denies chest discomfort or pain, heart RRR/distal pulses are palapble, discharge planning in progress to set patient up wit home health services, plan for discharge later today
--- NOTE | 2019-11-09 14:12 | NUR ---
Discharge orders discussed with the patient and her daughter, instructed them to follow up with PCP/hematonlogis and Cardiology as scheduled, IV and tele removed, i will escort them out the door via wheelchair
--- NOTE | 2019-11-10 07:59 | NUR ---
The patient discharged home 11/08 with nursing [facility].Production Proofreader faxed discharge orders to Oskar Hoyt [facility].
== END 2019-11-09 14:13 | disposition home health service (06) | DRG 281 ==
LOC: COL.ER 08:01 → IMCU 08:34 → ICU 08:34 → IMCU 10:45 → MEDICAL 11-05 16:08
PROVIDERS: Emergency Medicine; Physician Assistant; ADMIT Internal Medicine
DX: I48.92 Unspecified atrial flutter (principal); I21.A1 Myocardial infarction type 2; D59.1 Other autoimmune hemolytic anemias; E87.1 Hypo-osmolality and hyponatremia; D72.819 Decreased white blood cell count, unspecified; I10 Essential (primary) hypertension; I95.9 Hypotension, unspecified; R74.0 Nonspecific elevation of levels of transaminase and lactic acid dehydrogenase [LDH]; I27.20 Pulmonary hypertension, unspecified; G47.30 Sleep apnea, unspecified; M26.601 Right temporomandibular joint disorder, unspecified; E03.9 Hypothyroidism, unspecified; Z88.0 Allergy status to penicillin; Z88.6 Allergy status to analgesic agent; Z88.8 Allergy status to other drugs, medicaments and biological substances
CPT/HCPCS: 99223-AI; 99233-AI; 99239; J1160; J7030; J7512

== ENCOUNTER 2019-12-07 12:10 | Observation (INO) | payer MEDICARE, BC ==
[~2019-12-07] VITALS: Ht 167.6 cm; Wt 60.7 kg
[~2019-12-07 12:10] MED LIST changes: +BETAPACE 80MG80 MG PO; +CYTOXAN 50 PO; +ZOFRAN ODT4 MG PO; +ZOVIRAX400 MG PO
[2019-12-07 13:24] LABS: BASO % 0.5 % (0.0-2.0); EOS # 0.3 (0.0-0.7); EOS % 5.3 % (0-4.0); GRAN # 4.6 (1.4-6.5); GRAN % 76.7 % (42.2-75.2); LYMPH # 0.3 (1.2-3.4); LYMPH % 5.3 % (20.0-51.0); MEAN CELL VOLUME 105 fl (80.0-100.0); MEAN CORPUSCULAR HGB CONC 33 g/dl (33.0-37.0); MEAN PLATELET VOLUME 8.8 fl (7.4-10.4); MONO # 0.7 (0.1-0.6); MONO % 11.5 % (1.7-9.3); PLATELET COUNT 257 K/mm3 (130-400); RED BLOOD COUNT 2.73 M/mm3 (4.10-5.30); REDCELL DISTRIBUTION WIDTH-CV 14.7 % (11.5-14.5)
[2019-12-07 13:32] LABS: HEMATOCRIT 28.6 % (37.0-47.0); HEMOGLOBIN 9.5 g/dl (12.5-16.0); MEAN CORPUSCULAR HEMOGLOBIN 35 pg (27.0-31.0)
[2019-12-07 13:34] LABS: INR 1.2 (0.8-3.0); PROTHROMBIN TIME 12.9 SECONDS (9.7-12.8)
[2019-12-07 14:04] LABS: ALANINE AMINOTRANSFERASE 10 U/L (4-34); ALBUMIN 3.5 gm/dL (3.5-5.0); ALKALINE PHOSPHATASE 78 U/L (50-136); ANION GAP 6 mmol/L (7-16); AST,SGOT 30 U/L (15-37); BILIRUBIN,TOTAL 0.9 mg/dL (0.0-1.0); BLOOD UREA NITROGEN 9 mg/dL (7-17); CALCIUM 8.7 mg/dL (8.4-10.2); CARBON DIOXIDE 32 mmol/L (22-30); CHLORIDE 96 mmol/L (98-107); CREATININE, serum 0.54 (0.52-1.25); GLUCOSE 86 mg/dL (74-106); POTASSIUM 3.9 mmol/L (3.4-5.0); SODIUM 133 mmol/L (137-145); TOTAL PROTEIN 5.9 gm/dL (6.4-8.2)
[2019-12-07 14:18] LABS: TROPONIN-I < 0.012 ng/mL (0.000-0.035)
[2019-12-07 19:00] VITALS: BP 125/65; PULSE 67; TEMP 98.4
--- NOTE | 2019-12-07 19:33 | NUR ---
PT ARRIVED TO UNIT @1810 FROM ED ACCOMPANIED BY ER STAFF. DENIES PAIN. STEADY INDEPENDENT AMBULATION. SITTING IN RECLINER AND DINNER BROGUTH. ON RA. VSS. MILD SOB WITH ACTIVITY. AOX4. RT LOBES DIMINISHED. OCCASIAONL DRY COUGH. MULTIPLE SMALL BRUISES PT STATES FROM LONG TIME PREDNISONE USE. IV TO RT FA INTACT. REPORT GIVEN TO ONCOMING NURSE MADELAINE.
--- NOTE | 2019-12-07 22:11 | NUR ---
Pt resting in chair eating dinner. SOILA Franks completed admission and medication rec. assessment completed. heart sounds are regular with S1 and S2 present. lung sounds are clear, no shortness of breath while resting. pulses readily palpable. no other needs at this time.
[2019-12-07 23:24] VITALS: BP 148/86; PULSE 75; TEMP 98.2
[2019-12-08 04:00] VITALS: BP 134/66; PULSE 72; TEMP 98.4
--- NOTE | 2019-12-08 05:24 | NUR ---
pt sleeping in bed most of shift, called for any needs and assistance. no chest pressure or shortness of breath this shift while pt was resting. will continue to monitor.
[2019-12-08 07:08] LABS: BASO % 0.5 % (0.0-2.0); EOS # 0.4 (0.0-0.7); EOS % 7.6 % (0-4.0); GRAN # 4.3 (1.4-6.5); GRAN % 75.2 % (42.2-75.2); HEMOGLOBIN 10.6 g/dl (12.5-16.0); LYMPH # 0.3 (1.2-3.4); LYMPH % 5.7 % (20.0-51.0); MEAN CELL VOLUME 105 fl (80.0-100.0); MEAN CORPUSCULAR HEMOGLOBIN 35 pg (27.0-31.0); MEAN CORPUSCULAR HGB CONC 33 g/dl (33.0-37.0); MONO # 0.6 (0.1-0.6); MONO % 10.6 % (1.7-9.3); PLATELET COUNT 264 K/mm3 (130-400); RED BLOOD COUNT 3.05 M/mm3 (4.10-5.30); REDCELL DISTRIBUTION WIDTH-CV 14.6 % (11.5-14.5)
[2019-12-08 07:10] VITALS: BP 128/62; PULSE 72; TEMP 98.3
[2019-12-08 07:10] LABS: HEMATOCRIT 31.9 % (37.0-47.0)
--- NOTE | 2019-12-08 07:10 | NUR ---
Pt. awake and alert, sitting up in bed. Breath sounds course in left lower lobe. O2 sat 91% room air, telemetry on. INT site rt arm, no redness or swelling.
[2019-12-08 07:22] LABS: CALCIUM 8.8 mg/dL (8.4-10.2); CREATININE, serum 0.61 (0.52-1.25); POTASSIUM 3.9 mmol/L (3.4-5.0)
--- NOTE | 2019-12-08 08:45 | NUR ---
Pt. up ambulating with w/ PT. Pt. has steady gait, O2 sat 93% while ambulating.
--- NOTE | 2019-12-08 08:52 | NUR ---
Assessment complete. Patient sitting up in bed at this time talking with student nurse. No complaints of pain or dicomfort. States she is not currently SOB. IV site is CD&I. Patient is very conscious of her hgb and lab values and seems a little stressed about her POC but is handling it well. No other needs were expressed at this time. Call light is in reach.
[2019-12-08] MEDS ORDERED: ELIQUIS 5MG PO (08:59)
--- NOTE | 2019-12-08 09:15 | NUR ---
Adams hose applied bilaterally to lower extremities.
--- NOTE | 2019-12-08 09:46 | NUR ---
Initial visit; Patient appeared happy to have Acid Dumper visit and talked about her life and her blessings. Acid Dumper offered Darcie God's blessings and will keep her in Acid Dumper's prayers.
--- NOTE | 2019-12-08 10:24 | NUR ---
NITO met with the patient to discuss discharge plan and re-admit. The patient recently discharged from the hospital, 11/08, and returned home with home health for residential from [facility]. The patient states that after she discharged she went and stayed at her [place] house, which is three miles from her daughter's home. She states that her daughter checked in on her and that things were going well. She states that she took her medication as prescribed and that her next appointment with her PCP was scheduled for next Saturday. She states that today was suppose to be her last day for home health. The patient lives alone in [place]. Her daughter, Brandi (ph#[phone]), lives thirty miles away from [place]. The patient states that she also has a farm house that is three miles away from Brandi's. She reports independence with ADLs and has a cane and walker. The patient's PCP is Dr. Joss Hudson and she receives her medications at [facility]. She reports no difficulties obtaining her meds. The patient's DPOA-HC is in EMR and it designates her daughter, Brandi. The patient plans to return to her home upon discharge. She states that she plans on talking to her daughter today to decide on whether she will stay at her home in [place] or her farm house. The patient was interested in resuming home health services. NITO contacted and faxed updates to Janice at [facility]. Janice reports that they were not planning on ending home health today for the patient. Janice states that they are able to resume services for the patient upon discharge. NITO attempted to contact the patient's daughter, Brandi, to review d/c plan. NITO left her a voicemail.
[2019-12-08 10:45] VITALS: BP 127/66; PULSE 73; TEMP 97.8
--- NOTE | 2019-12-08 12:06 | NUR ---
The patient's daughter, Brandi, returned NITO's phone call. Brandi states that they will probably just plan on the patient returning back to her home in [place]. She is agreeable to the plan of returning home with home health. She had no other concerns for SW at this time.
[2019-12-08 17:44] VITALS: BP 118/72; PULSE 66; TEMP 98.1
[2019-12-08 19:24] VITALS: BP 136/62; PULSE 69; TEMP 97.6
--- NOTE | 2019-12-08 20:34 | NUR ---
Pt resting in bed, assessment completed. meds given per MAY, pt denies shortness of breath or chest pain. independent in room, oxygen sat in mid 90s on room air. will continue to monitor, no other needs at this time.
[2019-12-08 21:15] LABS: HAPTOGLOBIN 8 mg/dL (63-273)
[2019-12-09] VITALS: BP 156/81; PULSE 67; TEMP 98.2
--- NOTE | 2019-12-09 02:47 | NUR ---
Pt reporting shortness of breath and "feeling not normal". pt seemed anxious. stated that she hasn't been able to sleep very well while in the hospital and that she wears a cpap at home. put pt on oxygen nasal cannula at 1 liter for comfort. pt calmed down and resting in bed. will continue to monitor.
[2019-12-09 03:27] VITALS: BP 133/58; PULSE 70; TEMP 99
--- NOTE | 2019-12-09 05:04 | NUR ---
pt resting in bed most of shift. pt stated that she has not been able to sleep very well during her stay, pt reported that she wears a cpap at home during the night. put on oxygen nasal cannula at 1 liter for comfort and pt calmed down, able to sleep some. no other needs at this time will continue to monitor.
[2019-12-09 07:49] VITALS: BP 121/74; BP 153/65; PULSE 69; PULSE 91; TEMP 97.5; TEMP 98.1
[2019-12-09] MEDS ORDERED: ELIQUIS 5MG PO (09:06)
--- NOTE | 2019-12-09 09:16 | NUR ---
Follow-up visit; Vidhya Sun states she is doing well this morning and hopes to go home soon. Patient thanked Director Of Testing for looking in on her again this morning.
[2019-12-09 09:57] LABS: HEMATOCRIT 33.7 % (37.0-47.0)
--- NOTE | 2019-12-09 10:21 | NUR ---
PATIENT WAS ASSISTED TO SIT ON THE SIDE OF THE BED FOR BREAKFAST. SHE DENIED PAIN. DID STATE SHE HAD SOME DIFFICULTY WITH FEELING SHORT OF BREATH LAST NIGHT AND STATED SHE FELT IF IT WAS BECAUSE SHE HADNT BEEN GETTING HER PREDNISONE. SHE DID REQUEST THAT I GET HER SOME AND I EXPLAINED TO HER I COULD NOT ADMINISTER A MEDICATION THAT WAS NOT ORDERED AND SHE WOULD HAVE TO ADDRESS THIS WITH THE PROVIDER. SHE VERBALIZED UNDERSTANDING. NO OTHER NEEDS VERBALIZED. CALL LIGHT IS WITHIN REACH.
--- NOTE | 2019-12-09 10:43 | NUR ---
NITO attended clinical rounds. A repeat exercise oximetry was ordered. The patient did not qualify for oxygen. NITO followed up with the patient. The patient confirms plan is to return home with [facility]. NITO contacted and reviewed d/c plan with the patient's daughter, Brandi. She is agreeable to the plan. The patient is to discharge back home today, 12/08, with home health services for halfway/PT/OT through [facility]. NITO notified and faxed d/c orders to Janice at [facility]. Transportation back home is to be provided by her daughter, Brandi. No additional needs at this time.
[2019-12-09 11:22] VITALS: BP 117/64; PULSE 78; TEMP 98
== END 2019-12-09 12:35 | disposition home or self-care (01) ==
LOC: COL.ER 12:10 → MEDICAL 16:45
PROVIDERS: Family Medicine; Physician Assistant; ADMIT Student in an Organized Health Care Education/Training Program
DX: I26.99 Other pulmonary embolism without acute cor pulmonale (principal); D59.11 Warm autoimmune hemolytic anemia; I48.91 Unspecified atrial fibrillation; I10 Essential (primary) hypertension; E03.9 Hypothyroidism, unspecified; I77.810 Thoracic aortic ectasia; K21.9 Gastro-esophageal reflux disease without esophagitis; I34.0 Nonrheumatic mitral (valve) insufficiency; B00.1 Herpesviral vesicular dermatitis; H40.9 Unspecified glaucoma; R60.0 Localized edema; Z88.1 Allergy status to other antibiotic agents; Z88.8 Allergy status to other drugs, medicaments and biological substances; Z96.641 Presence of right artificial hip joint; Z95.818 Presence of other cardiac implants and grafts
CPT/HCPCS: 99232-AI; G0378; J1650; J7512; Q9967

== ENCOUNTER 2020-01-01 00:51 | Observation (INO) | payer MEDICARE, BC ==
[~2020-01-01] VITALS: Ht 167.6 cm; Wt 59.5 kg
[~2020-01-01 00:51] MED LIST changes: +ELIQUIS 5MG PO; +FOLIC ACID 40400 MCG PO; +IRON TABLETS325 MG PO
[2020-01-01 01:21] LABS: BASO % 0.3 % (0.0-2.0); EOS # 0.3 (0.0-0.7); EOS % 4.3 % (0-4.0); GRAN # 4.8 (1.4-6.5); GRAN % 76.7 % (42.2-75.2); HEMOGLOBIN 10.7 g/dl (12.5-16.0); LYMPH # 0.5 (1.2-3.4); LYMPH % 7.5 % (20.0-51.0); MEAN CELL VOLUME 101 fl (80.0-100.0); MEAN CORPUSCULAR HEMOGLOBIN 33 pg (27.0-31.0); MEAN CORPUSCULAR HGB CONC 33 g/dl (33.0-37.0); MEAN PLATELET VOLUME 8.7 fl (7.4-10.4); MONO # 0.7 (0.1-0.6); MONO % 10.7 % (1.7-9.3); PLATELET COUNT 230 K/mm3 (130-400); RED BLOOD COUNT 3.24 M/mm3 (4.10-5.30); REDCELL DISTRIBUTION WIDTH-CV 16.2 % (11.5-14.5)
[2020-01-01 01:22] LABS: HEMATOCRIT 32.8 % (37.0-47.0)
[2020-01-01 01:24] LABS: INR 1.4 (0.8-3.0); PROTHROMBIN TIME 15.2 SECONDS (9.7-12.8)
[2020-01-01 01:27] LABS: PARTIAL THROMBOPLASTIN TIME 35.7 SECONDS (26.0-37.0)
[2020-01-01] MEDS ORDERED: ELIQUIS 5MG PO (01:28)
[2020-01-01 01:33] LABS: ALANINE AMINOTRANSFERASE 12 U/L (4-34); ALBUMIN 4.2 gm/dL (3.5-5.0); ALKALINE PHOSPHATASE 94 U/L (50-136); ANION GAP 6 mmol/L (7-16); AST,SGOT 28 U/L (15-37); BILIRUBIN,TOTAL 1.2 mg/dL (0.0-1.0); BLOOD UREA NITROGEN 15 mg/dL (7-17); CALCIUM 9.7 mg/dL (8.4-10.2); CARBON DIOXIDE 31 mmol/L (22-30); CHLORIDE 92 mmol/L (98-107); CREATININE, serum 0.65 (0.52-1.25); GLUCOSE 107 mg/dL (74-106); LIPASE 140 U/L (23-300); MAGNESIUM 2.1 mg/dL (1.6-2.3); POTASSIUM 4.1 mmol/L (3.4-5.0); SODIUM 129 mmol/L (137-145); TOTAL PROTEIN 6.8 gm/dL (6.4-8.2)
[2020-01-01 01:34] LABS: C-REACTIVE PROTEIN 0.5 mg/dL (0.0-0.9)
[2020-01-01 01:43] LABS: TROPONIN-I < 0.012 ng/mL (0.000-0.035)
[2020-01-01 05:14] VITALS: BP 129/69; PULSE 68; TEMP 98
[2020-01-01] MEDS ORDERED: CALCIUM CITRAT200 M2 (05:40)
[2020-01-01] MEDS ORDERED: AZO-CRANBERRY450 MG PO (05:42)
[2020-01-01 07:41] VITALS: BP 132/62; PULSE 78; TEMP 97.6
--- NOTE | 2020-01-01 07:42 | NUR ---
Pt arrived to unit at 0400 from ED via stretcher. Report received from ED RN. Oriented pt to room, completed admission assessments and med rec. Lung sounds coarse to auscultation. Denies other needs at this time.
--- NOTE | 2020-01-01 09:25 | NUR ---
NITO attended clinical rounds. The patient is to have a repeat chest x-ray tomorrow and tentatively d/c afterwards. NITO then met with the patient to discuss discharge plan. The patient lives alone in [place]. Her children: Brandi (ph#[phone]) and Juan Jose (ph#[phone]) live in [place]. She reports needing some assistance with bathing and has a cane, walker, and home oxygen from [facility]. She states that she was using a CPAP, but was just switched to a bipap. [facility] supplies the bipap. The patient receives Meals on Wheels and home health services from [facility]. She states that home health helps her bathe. The patient's PCP is Dr. Joss Hudson and she receives her medications at [facility]. She reports no difficulties obtaining her meds. The patient's DPOA-HC is in EMR and it designates her daughter, Brandi. The patient plans to return home and resume home health services from [facility]. NITO contacted and reviewed the above information with the patient's daughter, Brandi. Brandi confirmed the above information and is in agreement with the patient returning back home with home health. NITO contacted and faxed updates to Janice at [facility]. NITO to continue to follow.
--- NOTE | 2020-01-01 10:23 | NUR ---
Pt assessment complete. Pt sitting up in bed upon entry, she is A/O x4. Her breathing is even and unlabored on 2L O2 via NC. Pt does continue to have productive cough. No SOB at this time. Bedside swallow complete, pt able to drink water without any signs of aspiration, no drooling, coughing or clearing of throat. Pt given medications one pill at a time. Able to tolerate this without issues. Pt will have diet advanced to general per VORB. IVF infusing without issues. Discussed repositioning with patient as she does report her tailbone is sore. She has no other needs at this time. Call light within reach. Will continue to monitor.
[2020-01-01 11:18] VITALS: BP 105/56; PULSE 64; TEMP 97.7
--- NOTE | 2020-01-01 15:25 | NUR ---
Pt taken off of O2, sat 95%. Will continue to monitor.
[2020-01-01 16:27] VITALS: BP 98/51; PULSE 62; TEMP 97.9
--- NOTE | 2020-01-01 18:36 | NUR ---
Pt sat up in the recliner for most of the day. Reports this helps her bottom feel better. Remained on RA through the afternoon. Ate and drank without issues. IVF infusing without complications. No needs at this time.
--- NOTE | 2020-01-01 18:53 | NUR ---
Report received from SOILA Bajwa. Pt sitting up in chair at this time. Denies needs. Call light in reach.
[2020-01-01 20:00] VITALS: BP 102/61; PULSE 61; TEMP 97.8
--- NOTE | 2020-01-01 21:45 | NUR ---
Shift assessment complete. Pt up to restroom and back to bed SBA. Lungs clear to auscultation, heart rate and rhythm regular, A&Ox4. Denies SOA. Currently on room air. Denies pain. NS running to peripheral line at 75 ml/hr. Will continue to monitor.
[2020-01-01 23:41] VITALS: BP 112/58; PULSE 77; TEMP 98.2
[2020-01-02 03:28] VITALS: BP 102/50; PULSE 58; TEMP 97.9
--- NOTE | 2020-01-02 05:08 | NUR ---
Pt had uneventful night. Asleep for most of night. No complaints of pain or SOA. Remains on room air.
[2020-01-02 06:42] LABS: BASO % 0.2 % (0.0-2.0); EOS # 0.2 (0.0-0.7); EOS % 3.3 % (0-4.0); GRAN # 3.9 (1.4-6.5); GRAN % 79.4 % (42.2-75.2); LYMPH # 0.3 (1.2-3.4); LYMPH % 5.8 % (20.0-51.0); MEAN CELL VOLUME 103 fl (80.0-100.0); MEAN CORPUSCULAR HGB CONC 33 g/dl (33.0-37.0); MEAN PLATELET VOLUME 8.9 fl (7.4-10.4); MONO # 0.5 (0.1-0.6); MONO % 10.9 % (1.7-9.3); PLATELET COUNT 180 K/mm3 (130-400); RED BLOOD COUNT 2.75 M/mm3 (4.10-5.30)
[2020-01-02 06:47] LABS: HEMATOCRIT 28.4 % (37.0-47.0); HEMOGLOBIN 9.3 g/dl (12.5-16.0); MEAN CORPUSCULAR HEMOGLOBIN 34 pg (27.0-31.0)
[2020-01-02 06:49] LABS: CALCIUM 8.7 mg/dL (8.4-10.2); CREATININE, serum 0.62 (0.52-1.25); POTASSIUM 3.9 mmol/L (3.4-5.0)
[2020-01-02 07:57] VITALS: BP 111/52; PULSE 70; TEMP 97.8
[2020-01-02] MEDS ORDERED: DOXYCYCLINE 10100 MG PO (09:46)
[2020-01-02] MEDS ORDERED: CHERATUSSIN AC120 ML PO (09:51)
--- NOTE | 2020-01-02 09:59 | NUR ---
Pt assessment complete. Pt is sitting up in bed, she is A/O x4. Her breathing is even and unlabored on RA. Pt reporting wheeze and hoarseness in her throat. POC discussed with patient, she will call a ride. No pain reported. Call light within reach.
--- NOTE | 2020-01-02 11:24 | NUR ---
Discharge paperwork and instructions reviewed with patient all questions answered at this time. IV to LFA dc'd catheter tip intact. Pt wheeled out at this time.l
== END 2020-01-02 11:30 | disposition home or self-care (01) ==
LOC: COL.ER 00:51 → MEDICAL 03:17
PROVIDERS: Emergency Medicine; Student in an Organized Health Care Education/Training Program; ADMIT Internal Medicine
DX: T17.298A Other foreign object in pharynx causing other injury, initial encounter (principal); D59.11 Warm autoimmune hemolytic anemia; I48.91 Unspecified atrial fibrillation; I10 Essential (primary) hypertension; E03.9 Hypothyroidism, unspecified; K21.9 Gastro-esophageal reflux disease without esophagitis; E44.0 Moderate protein-calorie malnutrition; R63.4 Abnormal weight loss; Z88.1 Allergy status to other antibiotic agents; Z88.6 Allergy status to analgesic agent; Z88.8 Allergy status to other drugs, medicaments and biological substances; Z79.01 Long term (current) use of anticoagulants; I34.0 Nonrheumatic mitral (valve) insufficiency; Z86.711 Personal history of pulmonary embolism; I27.20 Pulmonary hypertension, unspecified; Z96.641 Presence of right artificial hip joint
CPT/HCPCS: G0378; J2930; J7030; J7512

== ENCOUNTER 2020-09-10 01:09 | Emergency (ER) | payer MEDICARE, BC ==
[~2020-09-10] VITALS: Ht 167.6 cm; Wt 63.6 kg
[~2020-09-10 01:09] MED LIST changes: +AZO-CRANBERRY450 MG PO; +CALCIUM CITRAT200 M2; +CHERATUSSIN AC120 ML PO; +DOXYCYCLINE 10100 MG PO
[2020-09-10 02:53] VITALS: BP 139/81; PULSE 60; TEMP 97.9
== END 2020-09-10 02:53 | disposition home or self-care (01) ==
LOC: COL.ER 01:09
DX: G97.52 Postprocedural hemorrhage of a nervous system organ or structure following other procedure (principal); E03.9 Hypothyroidism, unspecified; I10 Essential (primary) hypertension; I48.91 Unspecified atrial fibrillation; Z95.818 Presence of other cardiac implants and grafts; Z88.8 Allergy status to other drugs, medicaments and biological substances; Z79.899 Other long term (current) drug therapy; Z79.890 Hormone replacement therapy; Z88.1 Allergy status to other antibiotic agents; Z79.01 Long term (current) use of anticoagulants